=== PATIENT | male | born 1985 | race Caucasian/White ===

== ENCOUNTER 2017-11-21 16:06 | Emergency (ER) | payer OTHER ==
[~2017-11-21] VITALS: Ht 182.9 cm; Wt 86.4 kg
[2017-11-21 16:14] VITALS: BP 126/84
[2017-11-21 16:22] LABS: GLUCOSE,POINT OF CARE 331 MG/DL (70-110)
== END 2017-11-21 19:30 | disposition left against medical advice (07) ==
LOC: EMS 16:09
DX: E11.65 Type 2 diabetes mellitus with hyperglycemia (principal); F17.210 Nicotine dependence, cigarettes, uncomplicated; Z53.21 Procedure and treatment not carried out due to patient leaving prior to being seen by health care provider
CPT/HCPCS: 82962